=== PATIENT | male | born 1980 | race Caucasian/White ===

== ENCOUNTER 2019-05-07 13:05 | Emergency (ER) | payer OTHER ==
[2019-05-07 13:28] VITALS: BP 104/62; PULSE 60; TEMP 98.2; BMI 26.4
--- NOTE | 2019-05-07 13:28 | PDOC ---
Rapid Medical Evaluation Chief Complaint: Injury Time Seen by Provider: 05/07/19 13:25 Medical Evaluation: Allergies Allergy/AdvReac Type Severity Reaction Status Date / Time No Known Allergies Allergy Verified 05/07/19 13:25 05/07/19 13:25 I have performed a brief in-person evaluation of this patient. The patient presents with a chief complaint of: head injury this am at work. 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 Had dizziness initially, since resolved. Only reports vague VALENZUELA now. No LOC, dizziness, n/v. Not on blood thinners Pertinent physical exam findings:stable and well go I have ordered the following:nothing The patient will proceed to the ED for further evaluation. Discharge Disposition - Diagnosis Head injury Qualifiers: Encounter type: initial encounter Qualified Code(s): S09.90XA - Unspecified injury of head, initial encounter - Referrals Referrals: Hemanth Garrett MD [Primary Care Provider] - - Patient Instructions - Post Discharge Activity
--- NOTE | 2019-05-07 15:24 | PDOC ---
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 There was no LOC although he felt mildly dizzy at the time of injury since that time is felt well. Used an ice pack and contusion resolved primarily. Came for evaluation Occurred: reports: just prior to arrival, this morning Severity: reports: mild, moderate Pain Location: reports: face, head Method of Injury: Yes: direct blow Modifying Factors: improves with: cold therapy Loss of Consciousness: no loss of consciousness Associated Symptoms (Fall): denies symptoms Past History - Travel Traveled outside of the country in the last 30 days: No Close contact w/someone who was outside of country & ill: No - Past Medical History Allergies/Adverse Reactions: Allergies Allergy/AdvReac Type Severity Reaction Status Date / Time No Known Allergies Allergy Verified 05/07/19 13:25 Home Medications: Ambulatory Orders No Home Medications 0 dose .ROUTE UTDICT 04/23/13 COPD: No - Immunization History Immunization Up to Date: Yes - Psycho Social/Smoking Cessation Hx Smoking Status: No Smoking History: Never smoked Number of Cigarettes Smoked Daily: 0 Information on smoking cessation initiated: No Hx Alcohol Use: No Drug/Substance Use Hx: No Substance Use Type: None Review of Systems - Review of Systems Able to Perform ROS?: Yes Is the patient limited Urdu proficient: Yes Constitutional: Yes: See HPI, Malaise. No: Symptoms Reported, Fever HEENTM: Yes: See HPI, Other. No: Symptoms Reported, Eye Pain, Blurred Vision, Nose Congestion Respiratory: Yes: See HPI. No: Symptoms reported Integumentary: Yes: Symptoms Reported, See HPI, Bruising Neurological: Yes: Symptoms reported, See HPI, Headache All Other Systems: Reviewed and Negative *Physical Exam - Vital Signs Last Vital Signs Temp Pulse Resp BP Pulse Ox 98.2 F 60 17 104/62 99 05/07/19 13:25 05/07/19 13:25 05/07/19 13:25 05/07/19 13:25 05/07/19 13:25 - Physical Exam General Appearance: Yes: Nourished, Appropriately Dressed, Apparent Distress HEENT: positive: ANGELES, Normal ENT Inspection (No hemotympanum, no drainage from nose or ears, no evidence of skull fracture . has 2 cm contusion to left upper forehead at hairline. No crepitus or step-offs.), TMs Normal, Pharynx Normal Neck: positive: Supple. negative: Tender Respiratory/Chest: positive: Lungs Clear Gastrointestinal/Abdominal: positive: Soft. negative: Tender Musculoskeletal: positive: Normal Inspection Extremity: positive: Normal Capillary Refill, Normal Inspection, Normal Range of Motion Integumentary: positive: Normal Color, Dry, Warm Neurologic: positive: radioactivity technician II-XII NML intact, Fully Oriented, Alert, Normal Mood/ Affect, Normal Response, Motor Strength 09/22 ED Progress Note - Progress Note Progress Note: 05/07/19 15:39 Superficial head injury, mild contusion. Will treat conservatively Discharge - Discharge Information Problems reviewed: Yes Clinical Impression/Diagnosis: Head injury Qualifiers: Encounter type: initial encounter Qualified Code(s): S09.90XA - Unspecified injury of head, initial encounter Condition: Stable Disposition: HOME - Admission No - Follow up/Referral Referrals: Hemanth Garrett MD [Primary Care Provider] - - Patient Discharge Instructions Patient Printed Discharge Instructions: DI for Closed Head Injury Additional Instructions: Rest, avoid strenuous activity or exercise for the next 24-48 hours May use ice on contusions as needed. May use Tylenol or Motrin for pain relief Watch and seek evaluation for changes in behavior including crankiness, inconsolability, quietness/ sleepiness that is inappropriate, tiredness that is inappropriate, watch for worsening and changes of behavior. Seek immediate evaluation/return to emergency department for vomiting, mental status changes, pain that's out of proportion , bloody drainage from ears or nose. Followup with private physician as needed in one to 2 days for reevaluation - Post Discharge Activity Work/Back to School Note: Back to Work
[2019-05-07] MEDS ORDERED: IBUPROFEN 600 MG TABLET (FP) PO ONE (15:27)
== END 2019-05-07 15:37 | disposition home or self-care (01) ==
LOC: JERFT 13:05
CPT/HCPCS: 99281-25